=== PATIENT | female | born 2005 | race Caucasian/White ===

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

== ENCOUNTER → 2023-01-24 | Outpatient (CLI) | payer OTHER ==
[2023-01-26 15:07] LABS: CHLAMYDIA BY NAA Negative (Negative); GONOCOCCUS BY NAA Negative (Negative); TRICH VAG BY NAA Negative (Negative)
[2023-01-27 22:10] LABS: HSV-1 DNA Positive (Negative); HSV-2 DNA Negative (Negative)
== END ==
LOC: LAB SHORT 11:42 → LAB 11:42
PROVIDERS: Registered Nurse Community Health
DX: N89.8 Other specified noninflammatory disorders of vagina (principal)
CPT/HCPCS: 87491; 87529; 87591; 87661

== ENCOUNTER 2023-02-25 20:50 | Inpatient (IN) | payer OTHER ==
[~2023-02-25] VITALS: Ht 172.7 cm; Wt 58.1 kg
[2023-02-25 21:00] LABS: Calcium, Ionized (POC) 1.11 mmol/L (1.10-1.46); Chloride (POC) 103 mmol/L (98-108); Glucose (ISTAT POC) 121 mg/dL (70-99); Hemoglobin (POC) 10.2 g/dL (12.0-16.0); Potassium (POC) 2.8 mmol/L (3.5-5.5); Sodium (POC) 143 mmol/L (135-148); Total CO2 (POC) 23 mmol/L (21-32)
[2023-02-25 21:05] LABS: Bicarbonate Venous 25.7 mmol/L (24.0-30.0); PCO2 Venous 49.8 mmHg (38-42); pH Blood Venous 7.35 (7.34-7.37)
[2023-02-25 21:09] LABS: BASOPHILS ABSOLUTE AUTO 0.02 K/mm3 (0.00-0.23); BASOPHILS PERCENT AUTO 0 % (0-2); EOSINOPHILS ABSOLUTE AUTO 0.09 K/mm3 (0.00-0.68); EOSINOPHILS PERCENT AUTO 2 % (0-6); Hematocrit 28.5 % (33.0-51.0); Hemoglobin 9.2 g/dL (11.5-16.0); IMMATURE GRAN ABSOLUTE AUTO 0.01 K/mm3 (0.00-0.10); IMMATURE GRAN PERCENT AUTO 0 % (0-1); LYMPHOCYTES ABSOLUTE AUTO 1.14 K/mm3 (0.84-5.20); LYMPHOCYTES PERCENT AUTO 23 % (21-46); MONOCYTES ABSOLUTE AUTO 0.57 K/mm3 (0.16-1.47); MONOCYTES PERCENT AUTO 11 % (4-13); Mean Corpuscular HGB 26.4 pg (26.0-34.0); Mean Corpuscular HGB Conc 32.3 g/dL (31.5-36.5); Mean Corpuscular Volume 82 fL (80-100); Mean Platelet Volume 8.6 fL (9.1-12.4); NEUTROPHILS ABSOLUTE AUTO 3.18 K/mm3 (1.96-9.15); NEUTROPHILS PERCENT AUTO 63 % (41-73); Platelet Count 356 K/mm3 (150-400); RDW Coefficient Variation 15.3 % (11.7-14.2); RDW Standard Deviation 45.5 fL (35.1-46.3); Red Blood Cell Count 3.49 M/mm3 (3.80-5.20); White Blood Cell Count 5.01 K/mm3 (4.00-11.30)
[2023-02-25 21:10] LABS: Source, Urine Foley catheter
[2023-02-25 21:13] LABS: Bilirubin, Urine Neg (Neg); Blood, Urine Neg (Neg); Glucose Qualitative, Urine Neg (Neg); Ketones, Urine Neg (Neg); Leukocyte Esterase, Urine Neg (Neg); Nitrite, Urine Neg (Neg); Protein, Urine Neg (Neg); Specific Gravity, Urine 1.015 (1.003-1.022); Urobilinogen, Urine NORM (Normal)
[2023-02-25 21:19] LABS: Appearance, Urine Clear (Clear); Color, Urine Pale Yellow (P-Yellow)
[2023-02-25 21:24] LABS: U Amphetamine Screen Not Detected; U Barbituate Screen Not Detected; U Benzodiazapine Screen Not Detected; U Buprenorphine Screen Not Detected; U Cannabinoids Screen Not Detected; U Cocaine Screen Not Detected; U Methadone Screen Not Detected; U Methamphetamine Screen Not Detected; U Opiates Screen Not Detected; U Oxycodone Screen Not Detected; U Phencyclidine Screen Not Detected; U Propoxyphene Screen Not Detected
[2023-02-25 21:36] LABS: Beta HCG, Quantitative, Serum <1 mIU/mL (0-3); Magnesium, Blood 2.2 mg/dL (1.6-2.4)
[2023-02-25 21:39] LABS: Alanine Aminotransfer (ALT/SGP 17 U/L (12-78); Albumin, Blood 3.5 g/dL (3.4-5.0); Albumin/Globulin Ratio 1.1 (0.8-1.8); Alk Phos 75 U/L (45-116); Anion Gap 9 mmol/L (6-16); Aspartate Aminotrans (AST/SGOT 18 U/L (12-37); Bilirubin, Total 0.3 mg/dL (0.1-1.0); Blood Urea Nitrogen 16 mg/dL (8-21); Bun/Creatinine Ratio 25.8 (12.0-20.0); CO2, Blood 27 mmol/L (21-32); Calcium, Blood 8.3 mg/dL (8.5-10.1); Chloride, Blood 109 mmol/L (98-108); Creatinine, Blood 0.62 mg/dL (0.40-1.00); Ethanol (Alcohol), Blood, Med 423 mg/dL; Globulin, Blood 3.3 g/dL (2.2-4.0); Glomerular Filtration Rate 131 (60-); Glucose, Blood 127 mg/dL (70-99); Potassium, Blood 2.8 mmol/L (3.5-5.5); Sodium, Blood 145 mmol/L (136-145); Total Protein, Blood 6.8 g/dL (6.4-8.2)
[2023-02-26] VITALS (48 sets, daily range): BP systolic 100–119; BP diastolic 61–86
--- NOTE | 2023-02-26 01:24 | NUR ---
ASSUMPTION OF CARE: RECEIVED REPORT FROM DUC OSBORNE. PT ARRIVED TO ICU 11 VIA GURNEY FROM ER AT 2343. INTUBATED AND SEDATED. ET TUBE 7.5, 26 AT THE TEETH. AC/VC MODE 16/40/5/35%. MAINTAINING SPO2 >95%. PT OPENS EYES SPONTANEOUSLY AND RESPONDS TO PAINFUL STIMULI. LUNG SOUNDS CLEAR IN THE UPPER LOBES, SLIGHTLY DIM IN THE BASES. PROPOFOL INFUSING AT 30 MCG/KG/MIN, WITH FENTANYL INFUSING AT 35 MCG/HR. NORMAL SINUS RHYTHM ON THE DIGITAL CARTOGRAPHER WITH RATE IN THE 80'S. SBP 100'S. OG TUBE SET TO LOW INTERMITTENT SUCTION, DRAINING CHUNKY BROWN LIQUID. TEMP [place] PATENT AND DRAINING TO GRAVITY, MODERATE AMOUNTS OF YELLOW URINE. THREE PIV'S, CLEAN, DRY, INTACT AND INFUSING MEDICATIONS. FAMILY AT THE BEDSIDE AND UPDATED TO PLAN OF CARE. PT BELONGINGS SENT HOME WITH THE FAMILY.
[2023-02-26 03:36] LABS: Hematocrit 29.5 % (33.0-51.0); Hemoglobin 9.6 g/dL (11.5-16.0); Mean Corpuscular HGB 26.4 pg (26.0-34.0); Mean Corpuscular HGB Conc 32.5 g/dL (31.5-36.5); Mean Corpuscular Volume 81 fL (80-100); Mean Platelet Volume 8.5 fL (9.1-12.4); Platelet Count 337 K/mm3 (150-400); RDW Coefficient Variation 15.5 % (11.7-14.2); RDW Standard Deviation 45.7 fL (35.1-46.3); Red Blood Cell Count 3.63 M/mm3 (3.80-5.20); White Blood Cell Count 3.67 K/mm3 (4.00-11.30)
[2023-02-26 03:57] LABS: Bun/Creatinine Ratio 22.3 (12.0-20.0); Calcium, Blood 8.1 mg/dL (8.5-10.1); Creatinine, Blood 0.58 mg/dL (0.40-1.00); Potassium, Blood 3.5 mmol/L (3.5-5.5)
--- NOTE | 2023-02-26 06:19 | NUR ---
SHIFT SUMMARY: PT REMAINS INTUBATED AND SEDATED T/O THE SHIFT. AC/VC SETTINGS 18/450/5/35%. PT WAKING UP MORE, TRYING TO PULL OUT ET TUBE. ABLE TO NOD HEAD YES AND NO TO QUESTIONS. ET TUBE 7.5, 21 AT THE TEETH. LUNG SOUNDS CLEAR AND DIM. PROPOFOL TITRATED UP TO 50 MCG/KG/MIN FOR COMFORT AND VENT COMPLIANCE. NORMAL SINUS RHYTHM WITH RATE IN THE 70'S-80'S. SBP 100'S. [place] IN PLACE, DRAINING YELLOW URINE TO GRAVITY. OG TUBE SET TO LOW INTERMITTENT SUCTION, CHUNKY BROWN OUTPUT DRAINING. PIV'S IN BILATERAL AC'S, INFUSING MEDICATIONS. PIV RIGHT HAND, SALINE LOCKED. FENTANYL DRIP AT 35 MCG/HR.
--- NOTE | 2023-02-26 07:30 | NUR ---
ASSUMED CARE: REPORT RECEIVED FROM EDINSON Navarro & YOLIS Mendez RNs. ASSUMED CARE OF THIS PT AT APPROX 0700. ON ASSESSMENT, THE PT IS SEDATED W/ PROPOFOL & FENTANYL, VENTILATED. RASS -2/-3 AT THIS TIME, SEDATION WAS INCREASED PRIOR TO ASSESSMENT BY CEO [employer] RNs R/T PT's INCREASING ANXIETY & ATTEMPTS TO SELF-EXTUBATE. LS CLEAR T/O, PT ON VENT W/ SETTINGS: AC/VC 16/400/5/35% W/ O2 SATS > 95%. MONITOR SHOWS ST W/ HR 100-110s, BP STABLE. OGT IN PLACE TO LIS W/ DARK BROWN OUTPUT NOTED IN TUBING & CANISTER. TEMP [place] PATENT/ DRAINING DARK YELLOW URINE IN SCANT AMNTS - WILL ASK PROVIDER ABOUT BEGINNING IV FLUIDS DURING AM ROUNDS FOR HYDRATION NEEDS. SKIN OVERALL CDI, Q2H REPOSITIONING TO MAINTAIN SKIN INTEGRITY. WILL CONTINUE TO MONITOR & UPDATE NEEDED.
--- NOTE | 2023-02-26 10:00 | NUR ---
DR MIX: PROVIDER AT BEDSIDE TO EVAL PT THIS AM. HE FEELS THAT SHE WILL BE SUITABLE FOR EXTUBATION THIS SHIFT & HAS DISCUSSED THIS POSSIBILITY W/ THE PT's FAMILY WHO ARE AT BEDSIDE. HE HAS ALSO MADE AMBER Boothe RT, AWARE OF THIS. PLAN IS FOR SBT & LIKELY EXTUBATION AFTER ROUNDS ARE COMPLETED THIS AM. THIS RN REQUESTS IV FLUID INFUSING R/T PT's PERSISTANT TACHYCARDIA & SMALL AMNTS DARK YELLOW URINE OUTPUT NOTED IN TEMP [place]. NO OTHER CHANGES AT THIS TIME.
--- NOTE | 2023-02-26 11:20 | NUR ---
EXTUBATION: AMBER Boothe, RT, AT BEDSIDE TO ATTEMPT SBT FOR THIS PT. PROPOFOL & FENTANYL WERE PLACED ON STANDBY & THE PT BEGAN TO AWAKEN AFTER A FEW MOMENTS. VENT ON SPONTANEOUS W/ PRESSURE SUPPORT GRADUALLY TITRATED DOWN FROM 10 TO 5, PER RT. THE PT IS AWAKE, EYES OPEN, TRACKING & FOLLOWING DIRECTIONS. SHE APPEARS ANXIOUS/ UPSET AT THAT TIME & NODS HEAD "YES" WHEN ASKED IF ANXIOUS. HR NOTED TO BE ELEVATED AT 130-160 BPM. DISCUSSED W/ DR MIX, WHO FEELS THAT HER ANXIETY WILL LESSEN SIGNIFICANTLY ONCE THE ETT IS REMOVED & HYDRATION IS IMPROVED. THE PT HAS BEEN EXTUBATED TO ROOM AIR AT 1115. BILAT SOFT WRIST RESTRAINTS REMOVED AT THAT TIME. SHE IS ABLE TO CLEAR HER SECRETIONS WELL & ATTEMPTS TO SPEAK IN HUSHED TONES, VOCAL REST ENCOURAGED. SHE EXPRESSES FEELING THIRSTY, WILL ATTEMPT BEDSIDE SWALLOW EVAL IN APPROX 30-45 MINS IF SHE REMAINS ALERT & ORIENTED. THE PT IS TEARFUL & STS SHE DOES NOT REMEMBER THE EVENTS PRIOR TO BEING INTUBATED, FAMILY IS AT BEDSIDE & SUPPORTIVE IN CARE. VSS.
[2023-02-26 14:31] LABS: Percent Saturation 5.9 % (15.0-50.0)
--- NOTE | 2023-02-26 17:22 | NUR ---
UPDATE / TRANSFER TO MEDICAL FLOOR: THE PT HAS CONTINUED TO DO WELL S/P EXTUBATION THIS AM. SHE IS A&O TO ALL, ABLE TO FOLLOW DIRECTIONS. STS NOT REMEMBERING THE EVENTS OF LAST NIGHT PRIOR TO INTUBATION & BECOMES SOMEWHAT EMOTIONAL WHEN DISCUSSING THEM. SHE REMAINS ON ROOM AIR, LS CLEAR T/O. MONITOR SHOWS ST W/ HR 100-110s, BP STABLE. TACHYCARDIA IMPROVING SINCE IVF BOLUS & PO FLUID INTAKE. PT HAS NO GI COMPLAINTS, IS TOLERATING PO INTAKE WELL. [place] CATHETER REMOVED PRIOR TO TRANSFER, OUTPUT INCREASED SINCE IVF BOLUS PER EMAR. URINE NOW LIGHT YELLOW IN COLOR. SKIN OVERALL INTACT, PT HAS BEEN SITTING UP IN THE CHAIR FOR THE LAST COUPLE OF HOURS. REPORT HAS BEEN GIVEN TO JV Tay RN TO ASSUME CARE. PT TAKEN OUT OF UNIT TO ROOM 327 AT APPROX 1730 VIA WC.
--- NOTE | 2023-02-26 18:18 | NUR ---
SHIFT SUMMARY; PATIENT TRANSFERRED FROM ICU 11. SHE HAD BEEN EXTUBATED EARLIER IN THE DAY. PER REPORT SHE WAS DEPRESSED OVER SOME PERSONAL ISSUES IN HER LIFE AND TIED TO DRINK HER TROUBLES AWAY. ON ARRIVAL LUCAS HAS FLAT AFFECT. SHE WANTS FAMILY TO SPEND THE NIGHT WITH HER.
[2023-02-27 04:10] VITALS: BP 106/62
[2023-02-27 05:22] LABS: BASOPHILS ABSOLUTE AUTO 0.01 K/mm3 (0.00-0.23); BASOPHILS PERCENT AUTO 0 % (0-2); EOSINOPHILS ABSOLUTE AUTO 0.21 K/mm3 (0.00-0.68); EOSINOPHILS PERCENT AUTO 3 % (0-6); Hematocrit 31.3 % (33.0-51.0); Hemoglobin 9.8 g/dL (11.5-16.0); IMMATURE GRAN ABSOLUTE AUTO 0.02 K/mm3 (0.00-0.10); IMMATURE GRAN PERCENT AUTO 0 % (0-1); LYMPHOCYTES ABSOLUTE AUTO 1.01 K/mm3 (0.84-5.20); LYMPHOCYTES PERCENT AUTO 16 % (21-46); MONOCYTES ABSOLUTE AUTO 0.67 K/mm3 (0.16-1.47); MONOCYTES PERCENT AUTO 11 % (4-13); Mean Corpuscular HGB 26.1 pg (26.0-34.0); Mean Corpuscular HGB Conc 31.3 g/dL (31.5-36.5); Mean Corpuscular Volume 83 fL (80-100); Mean Platelet Volume 8.9 fL (9.1-12.4); NEUTROPHILS ABSOLUTE AUTO 4.43 K/mm3 (1.96-9.15); NEUTROPHILS PERCENT AUTO 70 % (41-73); Platelet Count 332 K/mm3 (150-400); RDW Coefficient Variation 15.8 % (11.7-14.2); RDW Standard Deviation 48.1 fL (35.1-46.3); Red Blood Cell Count 3.76 M/mm3 (3.80-5.20); White Blood Cell Count 6.35 K/mm3 (4.00-11.30)
[2023-02-27 05:40] LABS: Bun/Creatinine Ratio 24.8 (12.0-20.0); Calcium, Blood 8.2 mg/dL (8.5-10.1); Creatinine, Blood 0.65 mg/dL (0.40-1.00); Potassium, Blood 4.1 mmol/L (3.5-5.5)
--- NOTE | 2023-02-27 06:40 | NUR ---
Shift Summary Pt independent in the room through the night. No complaints. Running sinus tach 100-110 on tele.
[2023-02-27 08:09] VITALS: BP 109/65
[2023-02-27 10:03] VITALS: BP 109/70
[2023-02-27] MEDS ORDERED: Vitamin B-12100 MCG PO (11:02)
[2023-02-27] MEDS ORDERED: PRENATAL TABLE1 EAC2 PO (11:03)
--- NOTE | 2023-02-27 12:18 | NUR ---
DC- PT WAS BROUGHT DOWN FOR DC AT 1120 IN STABLE CONDITION IN A . PT WAS PICKED UP BY HER GRANDMA. PT LEFT WITH ALL BELONGINGS.
== END 2023-02-27 11:23 | disposition home or self-care (01) | DRG 896 ==
LOC: ER 20:50 → ICUE 23:03 → MEDS 02-26 17:30 → ENPENDDIS 02-27 10:09 → MEDS 02-27 11:23
PROVIDERS: Internal Medicine; Student in an Organized Health Care Education/Training Program; ADMIT Internal Medicine
PROC: 0T9B70Z Drainage of Bladder with Drainage Device, Via Natural or Artificial Opening (ICD-10-PCS; principal; 2023-02-25)
DX: F10.129 Alcohol abuse with intoxication, unspecified (principal); J96.01 Acute respiratory failure with hypoxia; E87.6 Hypokalemia; D70.9 Neutropenia, unspecified; D63.8 Anemia in other chronic diseases classified elsewhere; Z85.6 Personal history of leukemia; Z79.899 Other long term (current) drug therapy; Y90.8 Blood alcohol level of 240 mg/100 ml or more
CPT/HCPCS: 36415; 51702; 70450; 71045; 80047; 80048; 80053; 81003; 82607; 82728; 82746; 82803; 83540; 83550; 83605; 83735; 84702; 85014; 85025; 85027; 93005; 93010; 94002; 96365; 96366; 96368; 96375; 99291-25; G0480; J2060; J2405; J2704; J3010; J3420; J3480; J7050; J7120

== ENCOUNTER 2023-07-08 19:12 | Emergency (ER) | payer OTHER ==
[~2023-07-08] VITALS: Ht 160 cm; Wt 61.2 kg
[~2023-07-08 19:12] MED LIST changes: +PRENATAL TABLE1 EAC2 PO; +Vitamin B-12100 MCG PO
[2023-07-08 19:53] LABS: BASOPHILS ABSOLUTE AUTO 0.01 K/mm3 (0.00-0.23); BASOPHILS PERCENT AUTO 0 % (0-2); EOSINOPHILS PERCENT AUTO 3 % (0-6); Hemoglobin 10.3 g/dL (11.5-16.0); IMMATURE GRAN ABSOLUTE AUTO 0.01 K/mm3 (0.00-0.10); IMMATURE GRAN PERCENT AUTO 0 % (0-1); LYMPHOCYTES ABSOLUTE AUTO 1.31 K/mm3 (0.84-5.20); LYMPHOCYTES PERCENT AUTO 22 % (21-46); MONOCYTES ABSOLUTE AUTO 0.58 K/mm3 (0.16-1.47); MONOCYTES PERCENT AUTO 10 % (4-13); Mean Corpuscular HGB 25.4 pg (26.0-34.0); Mean Corpuscular HGB Conc 32.2 g/dL (31.5-36.5); Mean Corpuscular Volume 79 fL (80-100); Mean Platelet Volume 8.9 fL (9.1-12.4); NEUTROPHILS ABSOLUTE AUTO 3.73 K/mm3 (1.96-9.15); NEUTROPHILS PERCENT AUTO 64 % (41-73); Platelet Count 393 K/mm3 (150-400); RDW Coefficient Variation 18.1 % (11.7-14.2); RDW Standard Deviation 52.3 fL (35.1-46.3); Red Blood Cell Count 4.05 M/mm3 (3.80-5.20); White Blood Cell Count 5.84 K/mm3 (4.00-11.30)
[2023-07-08 20:35] LABS: Albumin, Blood 3.8 g/dL (3.4-5.0); Bilirubin, Total 0.4 mg/dL (0.1-1.0); Bun/Creatinine Ratio 22.5 (12.0-20.0); Calcium, Blood 9.2 mg/dL (8.5-10.1); Creatinine, Blood 0.58 mg/dL (0.40-1.00); Globulin, Blood 3.7 g/dL (2.2-4.0); Potassium, Blood 3.3 mmol/L (3.5-5.5); Total Protein, Blood 7.5 g/dL (6.4-8.2)
[2023-07-08 21:45] VITALS: BP 105/68
[2023-07-08] MEDS ORDERED: OXAYDO5 M1 PO (23:09)
== END 2023-07-08 23:15 | disposition home or self-care (01) ==
LOC: ER 19:12
PROVIDERS: Student in an Organized Health Care Education/Training Program
DX: O03.9 Complete or unspecified spontaneous abortion without complication (principal); Z79.899 Other long term (current) drug therapy
CPT/HCPCS: 76801; 76817; 80053; 84702; 84703; 85025; 86900; 86901; 96374; 96375; 99284-25; A9270; J1170; J2405